=== PATIENT | male | born 1955 | race Hispanic/Latino ===

== ENCOUNTER → 2016-07-31 | Outpatient (CLI) | payer BC ==
[~2016-07-31] MED LIST: ?BP MED; FISH OIL; HYDR-3454 PO; HYDR25TA4 PO; LEVO50TA6 PO; LISI40TA PO; LISI5TAB14 PO; MULT-974 PO; ONDA4TAB11 PO
[2016-07-31 10:09] LABS: BASOPHILS % (AUTO) 0 % (0-10); EOSINOPHILS # (AUTO) 0.1 10^3/uL (0.0-0.3); EOSINOPHILS % (AUTO) 1 % (0-10); LYMPHOCYTES # (AUTO) 1.4 X 10^3 (1.0-4.0); LYMPHOCYTES % (AUTO) 15 % (12-44); MEAN CORPUSCULAR HEMOGLOBIN 30 PG (25-34); MEAN CORPUSCULAR HGB CONC 33 G/DL (32-36); MEAN CORPUSCULAR VOLUME 90 FL (80-99); MEAN PLATELET VOLUME 10.3 FL (7.4-10.4); MONOCYTES % (AUTO) 10 % (0-12); NEUTROPHILS # (AUTO) 6.8 X 10^3 (1.8-7.8); NEUTROPHILS % (AUTO) 74 % (42-75); PLATELET COUNT 174 10^3/uL (130-400); RED BLOOD COUNT 4.57 10^6/uL (4.35-5.85); RED CELL DISTRIBUTION WIDTH 15.4 % (10.0-14.5); WHITE BLOOD COUNT 9.2 10^3/uL (4.3-11.0)
[2016-07-31 10:40] LABS: ALBUMIN 3.8 G/DL (3.2-4.5); BILIRUBIN,TOTAL 0.6 MG/DL (0.1-1.0); CREATININE SERUM 1.48 MG/DL (0.60-1.30); POTASSIUM 4.1 MMOL/L (3.6-5.0); TOTAL PROTEIN 7.1 G/DL (6.4-8.2); hs C REACTIVE PROTEIN 16.52 MG/DL (0.00-0.50)
--- NOTE | 2016-07-31 11:36 | Diagnostic Imaging Report ---
EXAM: Scrotal ultrasound. INDICATION: There is an enlarged left testicle. FINDINGS: The right testicle is 3.2 x 1.9 x 2.7 cm. The left testicle is enlarged and has heterogenous echotexture with the approximate measurements of 5.6 x 5.4 x 5.3 cm. This has very heterogenous echotexture and is inseparable from a mass superior to the testicle. It is uncertain if this is a mass originating in the epididymis and infiltrating the testicular or if it is originating from the superior aspect of the left testicle. The maximum craniocaudal measurement including the superior portion of the left testicle mass to the inferior aspect of the testicle is 11 cm. There is a small to moderate left hydrocele. No significant hydrocele on the right side. IMPRESSION: Enlarged left testicle with inseparable mass along its superior aspect measuring collectively 11 x 5.4 x 5.3 cm with internal flow seen concerning for underlying neoplasm. At the patient's age, lymphoma would be a primary consideration. The findings were discussed with Petr Bolden APRN, by Dr. Farfan at the time of dictation. Dictated by: Dictated on workstation # [id number]
== END ==
LOC: RAD 09:54
DX: N50.89 Other specified disorders of the male genital organs (principal); R39.198 Other difficulties with micturition
CPT/HCPCS: 36415; 76870; 80053; 85025; 86141

== ENCOUNTER 2016-10-27 13:19 | Outpatient (RCR) | payer BC ==
[2016-10-06 14:27] LABS: CREATININE SERUM 1.56 MG/DL (0.60-1.30)
== END 2016-12-15 | disposition home or self-care (01) ==
LOC: ONC 13:19
PROVIDERS: ATTEND Radiology Radiation Oncology
DX: Z51.0 Encounter for antineoplastic radiation therapy (principal); C62.12 Malignant neoplasm of descended left testis
CPT/HCPCS: 77290; 77295; 77334; 77336; 77417; 82565; 84520; 99214

== ENCOUNTER 2017-02-02 14:48 | Outpatient (RCR) | payer BC | END 2017-05-03 | disposition home or self-care (01) | LOC: ONC 14:48 | PROVIDERS: ATTEND Radiology Radiation Oncology | DX: C62.12 Malignant neoplasm of descended left testis (principal); Z79.899 Other long term (current) drug therapy | CPT/HCPCS: 99213 ==